=== PATIENT | female | born 1990 | race Two or more races ===

== ENCOUNTER 2021-04-26 09:27 | Emergency (ER) | payer MEDICAID, OTHER, SELFPAY ==
[2021-04-26 09:38] VITALS: BP 124/76; PULSE 88; RESP 18; TEMP 36.8; BMI 34.0
--- NOTE | 2021-04-26 10:25 | ED_ITS ---
HPI - Skin/Abscess/Foreign Bdy General Chief complaint: Skin/Abscess/Foreign Body Stated complaint: Rash Time Seen by Provider: 04/26/21 10:25 Source: patient Mode of arrival: ambulatory History of Present Illness HPI narrative: 30-year-old female with no significant past medical history presenting to the ED complaining of pruritic rash diffusely over body x a couple weeks. Admits custodial where she is living had bedbug infestation. Admits daughter with similar symptoms who resides in the same bed as patient. Denies new exposures, new lotions/detergents, known tick or insect bites, SOB complaint: rash Onset (ago): week(s) Related Data Previous Rx's Medication Instructions Recorded cetirizine 10 mg tablet (Zyrtec) 10 mg PO DAILY PRN #14 tab 04/26/21 triamcinolone acetonide 0.025 % 1 appl TOPICAL BID #60 ml 04/26/21 lotion Allergies Allergy/AdvReac Type Severity Reaction Status Date / Time No Known Allergies Allergy Verified 04/26/21 09:38 Review of Systems Review of Systems: Constitutional: No Fever, No Chills ENT/Mouth: No Ear Pain, No Nasal Congestion, No Sinus Pain, No Hoarseness, No sore throat, No Rhinorrhea, No Swallowing Difficulty Cardiovascular: No Chest Pain, No SOB Respiratory: No Cough, No Sputum, No Wheezing Gastrointestinal: No Nausea, No Vomiting, No Abdominal pain Musculoskeletal: No joint pain, No Myalgias, No Joint Swelling Skin: No Skin Lesions, + rash Neuro: No Weakness, No Numbness, No Paresthesias Yes all other systems are reviewed and are negative PMFSH Past Medical History Attestation statement: The following information was validated with the patient. Social History Social History Advance Directives: Yes Advance Directives Information Provided: Yes Advance Directives on File: No Patient : No Physical Exam Vital Signs: Vital Signs: Last Vital Signs Temp 98.3 F 04/26/21 09:38 Pulse 88 04/26/21 09:38 Resp 18 04/26/21 09:38 BP 124/76 04/26/21 09:38 BMI result Body Mass Index 34.0 Const: General: cooperative, healthy appearing and no acute distress Orientation/consciousness: patient oriented x3 Limitations: no limitations HENMT: Head: Yes normal to inspection Ears: hearing grossly normal bilaterally General nose exam: Normal external nose present Face and sinus: Yes normal facial exam Eyes: General: appearance normal, both eyes and all related structures EOM: EOMs intact bilaterally Neck: Neck: Yes normal visual inspection Resp: Effort & Inspection: normal respiratory effort and no respiratory distress Auscultation: clear to auscultation bilaterally Cardio: Rate: regular rate Heart sounds: S1 normal heart sound present and S2 normal heart sound present Skin: Other: + fine papules with overlying excoriations noted to trunk and upper extremities. No palm/sole involvement. No linear rash/excoriations or interweb involvement Wounds: no wounds Neuro: General: patient oriented x3 Gait exam (Neuro): Normal gait present Extrem: General: Yes normal to inspection MDM - Skin/Abscess/Foreign Bdy MDM Narrative Medical decision making narrative: 30-year-old female with no significant past medical history presenting to the ED complaining of pruritic rash diffusely over body x a couple weeks. On exam vital signs stable, NAD. Rash most consistent with bedbugs. Low concern for scabies or drug eruption Discussed self-limiting and needed eradication of bedbugs Medical Records Attestation: I reviewed the patient's medical records. Lab Data Attestation: I reviewed the patient's lab results. Discharge Plan Discharge Clinical Impression: Infestation by bed bug Bed bug bite Qualifiers: Encounter type: initial encounter Qualified Code(s): W57.XXXA - Bitten or stung by nonvenomous insect and other nonvenomous arthropods, initial encounter Patient Disposition: Home, Self-Care Additional Instructions: You likely have a bedbug infestation Zyrtec will help with itchiness during the day Benadryl should help at night, however will make you drowsy Triamcinolone is a topical steroid cream which will help with rash/itching, do not apply to face, genital area, hands, or feet as can discolored skin Preferred methods of eradication include application of insecticides and heat treatment Bedbugs need to be killed with high amount of heat You may also leave laundry in closed sealed bags for up to 2 weeks Supplemental methods to reduce the number of bedbugs can aid in eradicating infestations and include vacuuming and laundering or freezing bedding and other infested fabrics. Items that are laundered should be washed and dried in a dryer on a hot setting to kill bedbugs Es probable que tenga bruce infestaci?n de chinches Zyrtec ayudar? con la picaz?n daniel el d?a. Benadryl deber?a ayudar por la noche, sin embargo, le melanie? petty?o. La triamcinolona es bruce crema con esteroides t?picos que ayudar? con el sarpullido / picaz?n, no se aplique en la prakash, el ?chris genital, las daly o los pies, ya que puede decolorar la piel. Los m?todos de erradicaci?n preferidos incluyen la aplicaci?n de insecticidas y el tratamiento t?rmico. Las chinches deben eliminarse con bruce gran cantidad de calor. Tambi?n puede dejar la ropa sucia en bolsas selladas cerradas hasta por 2 semanas. Los m?todos complementarios para reducir la cantidad de chinches pueden ayudar a erradicar las infestaciones e incluyen pasar la aspiradora y gera o congelar la ropa de cama y otras telas infestadas. Los art?culos que se lavan deben lavarse y secarse en bruce secadora en un lugar caliente para matar las chinches. Prescriptions: New cetirizine [Zyrtec] 10 mg tablet 10 mg PO DAILY PRN (Reason: itching) Qty: 14 RF: 0 triamcinolone acetonide 0.025 % lotion 1 appl topical BID Qty: 60 RF: 0 Referrals: Matty Piedra MD [Physician] - 2 days Interventions: ED Discharge Assessment Last Done: 04/26/21 10:54 Discharge Date/Time: 04/26/21 10:54 Print Language: [place]
== END 2021-04-26 10:54 | disposition home or self-care (01) ==
PROVIDERS: Emergency Provider Emergency Medicine
DX: R21 Rash and other nonspecific skin eruption (principal); Z79.899 Other long term (current) drug therapy
CPT/HCPCS: 99283